=== PATIENT | female | born 1965 | race Caucasian/White ===

== ENCOUNTER 2019-08-17 06:32 | Inpatient (IN) | payer OTHER ==
[~2019-08-17] VITALS: Ht 162.6 cm; Wt 72.5 kg
[2019-08-17 07:43] LABS: Basophils # (auto) 0 uL; Basophils % (auto) 0.3 % (0.0-2.0); Eosinophils # (auto) 0.2 uL; Eosinophils % (auto) 2.1 % (0.0-7.0); Hematocrit 42.7 % (36.0-46.0); Hemoglobin 14.5 g/dL (12.2-16.2); Lymphocytes # (auto) 1.6 uL; Lymphocytes % (auto) 16.2 % (10.0-50.0); Mean Corpuscular Hemoglobin 30.4 pg (28.0-32.0); Mean Corpuscular Volume 89.5 fL (80.0-100.0); Monocytes # (auto) 0.8 uL; Monocytes % (auto) 7.8 % (0.0-12.0); Neutrophils # (auto) 7.4 uL; Neutrophils % (auto) 73.6 % (37.0-80.0); Nucleated Red Blood Cells % 0.2 %; Platelet Count (auto) 328 10^3/uL (140-450); Red Blood Cells 4.77 10^6/uL (4.0-5.20); Red Cell Distribution Width 13.8 % (11.8-14.3)
[2019-08-17 07:56] LABS: INR 0.95 (0.9-1.15)
[2019-08-17 08:02] LABS: Albumin 3.4 g/dL (3.4-5.0); Calcium 9.8 mg/dL (8.5-10.1); Potassium 4.1 mmol/L (3.5-5.1)
[2019-08-17 08:11] LABS: Bilirubin, Total 0.7 mg/dL (0.2-1.0); Total Protein 7.3 g/dL (6.4-8.2)
[2019-08-17] MEDS ORDERED: SODIUM CHLORIDE 0.9% 1,000 ML IV ONE ×2 (09:48)
[2019-08-17] MEDS ORDERED: cefTRIAXone 1GM/50ML D5W 50 ML IV ONE (10:00)
[2019-08-17] MEDS ORDERED: CLINDAMYCIN 600MG IV 50 ML IV ONE (10:00)
[2019-08-17] MEDS ORDERED: TETANUS-DIPTH-ACEL PERTUSSIS 0.5ML SYRG IM ONE (10:30)
[2019-08-17] MEDS ORDERED: ONDANSETRON HCL 4 MG/2 ML VIAL IV PRN (14:15)
[2019-08-17] MEDS ORDERED: VANCOMYCIN PER PHARMACY 0 MG IV SCH (14:15)
[2019-08-17] MEDS ORDERED: NITROGLYCERIN 0.4 MG SL TAB SL PRN (14:15)
[2019-08-17] MEDS ORDERED: MORPHINE SULF INJ 2 MG/ML SYRINGE 1ML IV PRN ×2 (14:15)
[2019-08-17] MEDS ORDERED: ACETAMINOPHEN 500 MG TAB PO PRN (14:15)
--- NOTE | 2019-08-17 14:45 | NUR ---
MS admit from ER DOROTHEA PENNY admitted to tele/MS, no SBAR received. Patient oriented to SHAAN MCGOWAN RN primary RN, unit, room, bed, and unit policies regarding patient care and visiting hours. Patient is on room air, respirations even and unlabored. Patient denies pain at this time. Wound photos taken of right lower extremity, wound consult placed. Reviewed plan of care with patient, patient verbalized understanding. Bed in low and locked position, call light within reach. Will continue to monitor Q1 hour and PRN.
[2019-08-17] MEDS: SODIUM CHLORIDE 0.9% 1,000 ML IV SCH (15:00)
[2019-08-17] MEDS: VANCOMYCIN 1GM/250ML 250 ML IV SCH (17:15)
[2019-08-17 17:19] VITALS: BP 90/63
--- NOTE | 2019-08-17 17:50 | NUR ---
IV insertion IV access obtained, via clean sterile technique by inserting 22 gauge catheter to the left wrist after one attempt. IV secured properly. No trauma to site. Patient tolerated well.
--- NOTE | 2019-08-17 17:55 | NUR ---
IV removal IV removed from right wrist with clean sterile technique, catheter fully intact. Pressure dressing applied to site. Patient tolerated well. N
--- NOTE | 2019-08-17 19:08 | NUR ---
Closing Note Report given to car shifter RN. No signs or symptoms of distress noted at this time.
--- NOTE | 2019-08-17 19:35 | NUR ---
Opening Shift Note Assumed care of patient, awake and alert. No S/S of distress/SOB or pain. Noted right leg swelling and open wound on right calf with minimal drainage and dressing intact. Instructed on POC and to call for assist PRN, patient verbalized understanding, call light within reach, will continue to monitor for changes Q1hr and PRN.
[2019-08-17 22:00] VITALS: BP 99/65
[2019-08-18] MEDS: SODIUM CHLORIDE 0.9% 1,000 ML IV SCH ×3 (00:52→21:00)
[2019-08-18 05:00] VITALS: BP 88/55
--- NOTE | 2019-08-18 06:12 | NUR ---
Dressing to right calf changed, patient tolerated well
[2019-08-18 06:49] LABS: Basophils # (auto) 0 uL; Basophils % (auto) 0.8 % (0.0-2.0); Eosinophils # (auto) 0.2 uL; Eosinophils % (auto) 3.6 % (0.0-7.0); Hematocrit 37.7 % (36.0-46.0); Hemoglobin 12.9 g/dL (12.2-16.2); Lymphocytes # (auto) 1.6 uL; Lymphocytes % (auto) 26.6 % (10.0-50.0); Mean Corpuscular Hemoglobin 30.4 pg (28.0-32.0); Mean Corpuscular Hgb Conc. 34.2 g/dL (32.0-36.0); Mean Corpuscular Volume 88.9 fL (80.0-100.0); Monocytes # (auto) 0.5 uL; Monocytes % (auto) 8.3 % (0.0-12.0); Neutrophils # (auto) 3.6 uL; Neutrophils % (auto) 60.7 % (37.0-80.0); Platelet Count (auto) 284 10^3/uL (140-450); Red Blood Cells 4.24 10^6/uL (4.0-5.20); Red Cell Distribution Width 13.7 % (11.8-14.3)
[2019-08-18 07:03] LABS: Potassium 3.9 mmol/L (3.5-5.1)
[2019-08-18 07:12] LABS: Albumin 2.6 g/dL (3.4-5.0); BUN/Creatinine Ratio 18.5; Bilirubin, Total 0.5 mg/dL (0.2-1.0); Calcium 9.3 mg/dL (8.5-10.1); Total Protein 6.4 g/dL (6.4-8.2)
--- NOTE | 2019-08-18 08:00 | NUR ---
Opening Shift Note Assumed care of patient, awake and alert. No S/S of distress/SOB or pain. Instructed on POC and to call for assist PRN. Bed in lowest locked position, call light within reach, side rails up x2. Will continue to monitor for changes Q1hr and PRN.
[2019-08-18 09:00] VITALS: BP 95/64
[2019-08-18] MEDS: VANCOMYCIN 1GM/250ML 250 ML IV SCH (10:09)
[2019-08-18] MEDS: cefTRIAXone 1GM/50ML D5W 50 ML IV SCH (10:10)
[2019-08-18] MEDS: FAMOTIDINE 20 MG TAB PO SCH (10:10)
[2019-08-18] MEDS: ENOXAPARIN SOD 40 MG/0.4 ML SYRINGE SC SCH (10:11)
--- NOTE | 2019-08-18 11:40 | NUR ---
WOUND CARE NOTE: IN TO SEE PATIENT PER WOUND CONSULT REQUEST. PATIENT ADMITTED TO [facility] WITH DIAGNOSIS OF CELLULITIS. WOUND PHOTO WAS TAKEN AT THAT TIME BY BEDSIDE NURSE. WOUND CULTURE SENT IN FOR PROCESSING AND IS PENDING. PATIENT STATS THAT SHE OBTAINED A DOG SCRATCH MORE THAN ONE WEEK AGO, AND WOUND CONTINUED TO WORSEN. SHE IS NOTED TO HAVE A 2 X 1.2 X 0.2 CM FULL THICKNESS WOUND NOTED. THERE IS ERYTHEMA TO RIGHT UPPER THIGH, AND PERIWOUND OF RIGHT POSTERIOR CALF. THERE IS MILD INDURATION TO THE PERIWOUND. SEROUS DRAINAGE NOTED IN LIGHT AMOUNTS, NO PURULENT DRAINAGE NOTED. CLEANSED WOUND WITH WOUND CLEANSER, PATTED DRY WITH STERILE GAUZE. APPLIED SILVASORB HYDROGEL. COVERED WITH OPTIFOAM GENTLE DRESSING. ELEVATED RIGHT LEG UP ONTO PILLOW FOR EDEMA CONTROL. RECOMMEND: DAILY/PRN DRESSING CHANGE PER MD ORDER, DIETARY CONSULT, SKIN/WOUND CARE PLAN, CONTINUED MONITORING BY WOUND CARE TEAM. Addendum: 08/18/19 at 1859 by Chanell Velázquez RN Amended: Links added.
[2019-08-18 13:00] VITALS: BP 99/68
[2019-08-18] MEDS: HYDROcodone-ACET 5/325MG TAB PO PRN (16:29)
[2019-08-18 16:50] VITALS: BP 105/75
--- NOTE | 2019-08-18 19:35 | NUR ---
Opening Shift Note Assumed care of patient, awake and alert. No S/S of distress/SOB or pain. Instructed on POC and to call for assist PRN, patient verbalized understanding, call light within reach, will continue to monitor for changes Q1hr and PRN.
--- NOTE | 2019-08-18 20:30 | NUR ---
Dressing to right calf came off. Cleansed wound with cleanser, applied silvasorb and covered with optifoam, patient tolerated well
[2019-08-18 21:44] VITALS: BP 104/69
[2019-08-19] MEDS ORDERED: VANCOMYCIN 1GM/250ML 250 ML IV SCH (04:00)
[2019-08-19 04:02] LABS: BUN/Creatinine Ratio 16.2; Calcium 8.5 mg/dL (8.5-10.1); Potassium 3.7 mmol/L (3.5-5.1)
[2019-08-19 05:03] VITALS: BP 105/69
--- NOTE | 2019-08-19 06:00 | NUR ---
IV on left wrist infiltrated, removed with catheter intact, patient tolerated well
--- NOTE | 2019-08-19 06:01 | NUR ---
Patient requested that IV be put at a later time. Per patient, she wanted to rest her arm, will endorse to daysdilan MARTINO
[2019-08-19] MEDS: SODIUM CHLORIDE 0.9% 1,000 ML IV SCH ×2 (06:02→17:00)
--- NOTE | 2019-08-19 07:45 | NUR ---
Opening Shift Note Assumed care of patient, awake, alert and oriented. No S/S of distress/SOB or pain. Instructed on POC and to call for assist PRN. Bed in lowest locked position, call light within reach, side rails up x2. Will continue to monitor for changes Q1hr and PRN.
--- NOTE | 2019-08-19 08:30 | NUR ---
IV insertion IV access obtained, via clean sterile technique by inserting 22 gauge catheter at RIGHT WRIST after 1 attempt(s). IV secured properly. No trauma to site. Patient tolerated procedure well. IV removal IV DC'd with sterile technique, catheter fully intact. Pressure dressing applied to site. Patient tolerated procedure well.
[2019-08-19 09:00] VITALS: BP_SYST 111; BP_SYST 147; BP_DIAS 71; BP_DIAS 98
[2019-08-19] MEDS: cefTRIAXone 1GM/50ML D5W 50 ML IV SCH (09:31)
[2019-08-19] MEDS: FAMOTIDINE 20 MG TAB PO SCH (09:32)
[2019-08-19] MEDS: ENOXAPARIN SOD 40 MG/0.4 ML SYRINGE SC SCH (09:32)
--- NOTE | 2019-08-19 09:45 | NUR ---
WOUND CARE DRESSING CHANGED
[2019-08-19] MEDS: HYDROcodone-ACET 5/325MG TAB PO PRN (12:03)
[2019-08-19 13:00] VITALS: BP 102/67
[2019-08-19 17:00] VITALS: BP 103/67
[2019-08-19] MEDS: VANCOMYCIN 1GM/250ML 250 ML IV SCH (18:13)
--- NOTE | 2019-08-19 20:00 | NUR ---
ASSUMED CARE, PT. AWAKE, RELATIVE AT BEDSIDE, NO C/O PAIN, NOT IN DISTRESS.
[2019-08-19 22:02] VITALS: BP 107/73
[2019-08-20] MEDS: SODIUM CHLORIDE 0.9% 1,000 ML IV SCH ×2 (03:04→14:06)
[2019-08-20] MEDS: VANCOMYCIN 1GM/250ML 250 ML IV SCH (04:01)
[2019-08-20 05:00] VITALS: BP 124/77
[2019-08-20] MEDS: cefTRIAXone 1GM/50ML D5W 50 ML IV SCH (08:02)
[2019-08-20] MEDS: HYDROcodone-ACET 5/325MG TAB PO PRN (08:02)
[2019-08-20 09:00] VITALS: BP 149/79
[2019-08-20] MEDS: ENOXAPARIN SOD 40 MG/0.4 ML SYRINGE SC SCH (09:19)
[2019-08-20] MEDS: FAMOTIDINE 20 MG TAB PO SCH (09:20)
--- NOTE | 2019-08-20 11:10 | NUR ---
WOUND CARE DRESSING CHANGED PER WOUND CARE NURSE ORDERS
[2019-08-20 13:00] VITALS: BP 93/63
[2019-08-20] MEDS ORDERED: CLIN300C8 PO (13:26)
[2019-08-20] MEDS ORDERED: SACC250C PO (13:26)
--- NOTE | 2019-08-20 15:55 | NUR ---
Discharge instructions given as ordered. Encourage to follow up with PMD as instructed. All questions and concerns addressed. Patient verbalized understanding. Discharge wound picture taken. IV removed with catheter intact, pressure dressing applied. Patient taken to vehicle via wheelchair with all personal belongings, accompanied by staff and family member. No distress noted at time of departure.
== END 2019-08-20 15:55 | disposition home or self-care (01) | DRG 383 ==
LOC: ER 06:36 → OVERFLOW 06:37 → WEST WING 14:45
PROVIDERS: ADMIT Nurse Practitioner Acute Care; ATTEND Internal Medicine
DX: L03.115 Cellulitis of right lower limb (principal); S81.851A Open bite, right lower leg, initial encounter; Z87.891 Personal history of nicotine dependence; E16.2 Hypoglycemia, unspecified; A49.01 Methicillin susceptible Staphylococcus aureus infection, unspecified site; W54.0XXA Bitten by dog, initial encounter; Y93.89 Activity, other specified; Y92.89 Other specified places as the place of occurrence of the external cause; Y99.8 Other external cause status
CPT/HCPCS: 36415; 73700; 80048; 80053; 80202; 83605; 85025; 85610; 85730; 87040; 87077; 87186; 87205; 90471; 90715; 93971; 96361; 96365; 96367; G0378; J0696; J3490